=== PATIENT | female | born 1950 | race Caucasian/White ===

== ENCOUNTER → 2019-08-16 | Outpatient (CLI) | payer MEDICARE ==
--- NOTE | 2019-08-16 15:50 | US ---
EXAMINATION TYPE: US thyroid st tissue head/neck DATE OF EXAM: 08/16/2019 COMPARISON: NONE CLINICAL HISTORY: 68-year-old female E04.2 nontoxic multinodular goiter. Follow up thyroid nodule, hi story of FNA TECHNIQUE: Multiple sonographic images of the thyroid gland are obtained. FINDINGS: GLAND SIZE: Right Lobe: 3.9 x 1.4 x 1.4 cm Overall Parenchyma: heterogenous Left Lobe: 4.9 x 1.9 x 2.5 cm Overall Parenchyma: heterogeneous Isthmus Thickness: 0.5 cm NODULES RIGHT: # of nodules measured on right: 0 LEFT: # of nodules measured on left: 1 1. 2.1 X 1.6 x 2.3 cm hypoechoic mixed solid cystic nodule at the lower pole with poorly defined ma rgins. This nodule is wider than tall and shows intranodular vascularity. Prior size: no previous ISTHMUS: # of nodules measured in the isthmus: 0 Bilateral neck scanned, no evidence of lymphadenopathy. IMPRESSION: A 2.3 cm mixed solid cystic nodule at the left lower pole. FNA can be considered if not previously pe rformed.
== END | disposition home or self-care (01) ==
LOC: RADUSWWP 12:17
PROVIDERS: ATTEND Internal Medicine Endocrinology, Diabetes & Metabolism
DX: E04.1 Nontoxic single thyroid nodule (principal)
CPT/HCPCS: 76536

== ENCOUNTER → 2020-09-10 | Outpatient (CLI) | payer MEDICARE ==
[2020-09-11 02:58] LABS: T4, Free (Free Thyroxine) 1.5 ng/dL (0.80-1.80)
== END | disposition home or self-care (01) ==
LOC: LABWHC1 11:01
PROVIDERS: ATTEND Internal Medicine Endocrinology, Diabetes & Metabolism
DX: E04.2 Nontoxic multinodular goiter (principal)
CPT/HCPCS: 36415; 84439; 84443

== ENCOUNTER → 2020-11-28 | Outpatient (CLI) | payer MEDICARE ==
--- NOTE | 2020-11-28 16:07 | US ---
EXAMINATION TYPE: US kidneys/renal and bladder DATE OF EXAM: 11/28/2020 COMPARISON: NONE CLINICAL HISTORY: N28.9 CKD Stage 3. EXAM MEASUREMENTS: Right Kidney: 9.5 x 5.2 x 5.1 cm Left Kidney: 9.0 x 4.4 x 4.2 cm Right Kidney: No hydronephrosis or shadowing renal calculi.. Cyst lower pole measuring 3.4 x 2.4 x 3. 7 cm Left Kidney: Two cystic areas visualized, largest measuring 2.7 x 2.1 x 2.4 cm no hydronephrosis or shadowing renal calculi. Bladder: wnl Bilateral Jets seen: No ureteral jets not visualized No hydronephrosis or shadowing renal calculi. IMPRESSION: 1. No hydronephrosis or shadowing renal calculi. 2. Bilateral renal cysts, as described above. The largest at the right lower pole measures 3.4 x 3.7 x 2.4 cm. 3. The ureteral jets are not visualized.
== END | disposition home or self-care (01) ==
LOC: RADUSWWP 13:07
PROVIDERS: ATTEND Family Medicine
DX: N18.30 Chronic kidney disease, stage 3 unspecified (principal); N28.1 Cyst of kidney, acquired
CPT/HCPCS: 76770

== ENCOUNTER → 2020-12-05 | Outpatient (CLI) | payer MEDICARE ==
--- NOTE | 2020-12-05 10:12 | US ---
EXAMINATION TYPE: US abdomen limited DATE OF EXAM: 12/05/2020 COMPARISON: NONE CLINICAL HISTORY: 70-year-old female I72.1 Splenic artery aneurysm. TECHNIQUE: Multiple sonographic images of the left upper quadrant are obtained. FINDINGS: EXAM MEASUREMENTS: Spleen: 9.6 cm 1. Spleen: splenic artery mostly obscured by overlying bowel gas, small portions of artery seen at splenic hilum and celiac trunk appear wnl IMPRESSION: Normal size spleen. Only a small portion of the splenic artery at the hilum of the spleen and at the celiac axis origin is visualized. Unable to visualize the patient's splenic artery aneurysm by ultras ound. Contrast enhanced CT can better evaluate.
== END | disposition home or self-care (01) ==
LOC: RADUSWWP 07:35
PROVIDERS: ATTEND Family Medicine
DX: I72.8 Aneurysm of other specified arteries (principal)
CPT/HCPCS: 76705

== ENCOUNTER → 2021-04-03 | Outpatient (CLI) | payer MEDICARE ==
--- NOTE | 2021-04-03 09:09 | US ---
EXAMINATION TYPE: US abdomen complete DATE OF EXAM: 04/03/2021 COMPARISON: US CLINICAL HISTORY: R93.89 abnormal findings. Abnormal US finding. EXAM MEASUREMENTS: Liver Length: 12.3 cm Gallbladder Wall: 0.14 cm CBD: 0.41 cm Spleen: 9.9 cm Right Kidney: 9.6 x 4.5 x 4.4 cm Left Kidney: 10.3 x 5.1 x 5.3 cm Limited due to gas and patient body habitus. Pancreas: Appears hyperechoic and heterogeneous. Tail obscured. Liver: Increased echogenicity. Appears coarse in echotexture. Hypoechoic area seen adjacent to the gallbladder: 1.0 x 1.4 x 1.7 cm. Gallbladder: Hyperechoic focus seen within: 0.4 x 0.6 x 0.7 cm. Evidence for sonographic Forbes's sign: No CBD: Portions seen appear wnl. Spleen: Appears wnl Right Kidney: Anechoic areas seen, largest seen lower pole measures: 4.2 x 3.7 x 3.3 cm. Collecting s ystem appears slightly dilated. Left Kidney: Anechoic area seen lower pole: 2.5 x 2.8 x 2.3 cm. Hyperechoic focus seen: 0.3 x 0.4 x 0 .2 cm. Upper IVC: Appears wnl Abd Aorta: Appears wnl. Iliacs obscured by gas. IMPRESSION: 1. Cholelithiasis 2. Correlate with pancreatic enzymes of the pancreas appear somewhat heterogeneous but is limited in assessment. . 3. Heterogeneous pattern to the liver is nonspecific correlate for hepatocellular disease. CAT scan i s recommended for further evaluation. 4. Bilateral renal cysts with nonobstructing left renal calculus.
== END | disposition home or self-care (01) ==
LOC: RADUSWWP 06:55
PROVIDERS: ATTEND Family Medicine
DX: K80.20 Calculus of gallbladder without cholecystitis without obstruction (principal); N20.0 Calculus of kidney; N28.1 Cyst of kidney, acquired
CPT/HCPCS: 76700

== ENCOUNTER → 2021-05-05 | Outpatient (CLI) | payer MEDICARE ==
--- NOTE | 2021-05-06 09:05 | CT ---
EXAMINATION TYPE: CT abdomen wo con DATE OF EXAM: 05/05/2021 COMPARISON: No relevant previous studies are submitted HISTORY: Splenic artery aneurysm CT DLP: 361.70 mGycm Automated exposure control for dose reduction was used. TECHNIQUE: Helical acquisition of images was performed from the lung bases through the abdomen. No i ntravenous contrast. CONTRAST: Performed without Oral Contrast and without IV contrast. FINDINGS: Lack of contrast could compromise sensitivity. LUNG BASES: No significant abnormality is appreciated. LIVER/GB: Liver shows no mass. Gallbladder is thought to be contracted, some high attenuation present suggesting stones. PANCREAS: No significant abnormality is seen. SPLEEN: Calcified oval focus towards the splenic hilum on the left is noted and measures approximatel y 2.2 cm in greatest dimension. There is an additional calcification associated with splenic artery s omewhat more centrally also along shape measuring approximately 2 cm in greatest dimension. ADRENALS: No discrete abnormality KIDNEYS: Large exophytic cyst at the lower pole anteriorly measures 4 cm, no hydronephrosis bilateral ly. At the lower pole of the left kidney there is a cystic focus measuring 2.5 cm BOWEL: Colonic interposition noted anterior to the liver. There may be a small duodenal diverticulum at the level of the head of the pancreas. Diverticular change noted incidentally within the colon. LYMPH NODES: No significan abnormality is appreciated. OSSEOUS STRUCTURES: Minimal anterolisthesis grade 1 L4-5 and L3-4, there is loss of disc height at i ntervertebral levels L3-4 and L4-5 consistent with degenerative disc disease. Focal lucency present a t the L2-3 level towards the right neural foramen, lateral recess may be indicative of vacuum phenome non, disc disease, multilevel disc bulge noted, there is associated facet arthropathy. Sclerotic focu s in the right sacrum is indeterminate, consider bone scan as indicated, findings could be related to bone island. FREE AIR: No Free Air visible ASCITES: None visible. RETROPERITONEAL ADENOPATHY: No Retroperitoneal Adenopathy visible. OTHER: Uterus and adnexal structures not seen. IMPRESSION: SPLENIC ARTERY ANEURYSMS. ADDITIONAL FINDINGS ABOVE.
== END | disposition home or self-care (01) ==
LOC: RADCTMAIN 17:08
PROVIDERS: ATTEND Family Medicine
DX: I72.8 Aneurysm of other specified arteries (principal)
CPT/HCPCS: 74150

== ENCOUNTER → 2021-09-17 | Outpatient (CLI) | payer MEDICARE ==
--- NOTE | 2021-09-17 16:11 | US ---
EXAMINATION TYPE: US thyroid st tissue head/neck DATE OF EXAM: 09/17/2021 COMPARISON: NONE CLINICAL HISTORY: E04.2 NONTOXIC MULTINODULAR GOITER. GLAND SIZE: Right Lobe: 4.8 x 1.4 x 2.0 cm Overall Parenchyma: heterogenous Left Lobe: 5.0 x 1.3 x 2.4 cm Overall Parenchyma: heterogeneous Isthmus Thickness: 0.6 cm NODULES RIGHT: # of nodules measured on right: 1 1. 0.4 X 0.3 x 0.3 cm, upper medial, mixed cystic and solid, hypoechoic nodule, which is taller [place] n wide, with lobulated or irregular margins, without echogenic foci. LEFT: # of nodules measured on left: 1 1. 2.2 X 2.6 x 1.7 cm, lower mid, mixed cystic and solid, hypoechoic nodule, which is wider than ta ll, with lobulated or irregular margins, without echogenic foci. TR 4 Prior size: 2.1 x 1.6 x 2.3 cm ISTHMUS: # of nodules measured in the isthmus: 0 Bilateral neck scanned, Right neck lymph node measuring 0.9 x 0.5 x 0.5cm. Left neck lymph node measu ring 1.2 x 0.7 x 0.6cm. IMPRESSION: Moderately suspicious nodule left lobe thyroid. Fine-needle aspiration recommended. 2017 ACR TI-RADS LEVEL: TR-RADS 4 - Moderately Suspicious: Follow if > 1 cm, FNA if > 1.5 cm *Highest TI-RADS level nodule reported
[2021-09-17 19:07] LABS: T4, Free (Free Thyroxine) 1.5 ng/dL (0.800-1.800)
== END | disposition home or self-care (01) ==
LOC: RADUSWWP 12:29
PROVIDERS: ATTEND Internal Medicine Endocrinology, Diabetes & Metabolism
DX: E04.2 Nontoxic multinodular goiter (principal)
CPT/HCPCS: 76536; 84439; 84443

== ENCOUNTER 2022-06-01 06:43 | Day surgery (SDC) | payer MEDICARE ==
[~2022-06-01 06:43] MED LIST: LACTATED RINGERS 1,000 ML IV SCH; LIDOCAINE 1% (10MG/ML) FOR IV START INTRADERMA PRN
[2022-06-01 06:59] VITALS: TEMP 97.2
[2022-06-01] MEDS ORDERED: LACTATED RINGERS 1,000 ML IV ONE (07:00)
[2022-06-01 07:08] LABS: Glucose,Whole Blood 98 mg/dL (70-110)
[2022-06-01] MEDS ORDERED: PROPOFOL 10 MG/ML 20 ML VIAL IV ONE (07:36)
--- NOTE | 2022-06-01 08:10 | P.PCN ---
Date of Procedure: 06/01/22 Procedure(s) Performed: BRIEF HISTORY: Patient is a 71-year-old pleasant female scheduled for an elective colonoscopy as a part of evaluation of skin for colon cancer and prior history of colon polyps. PROCEDURE PERFORMED: Colonoscopy. PREOPERATIVE DIAGNOSIS: Screening for Colon cancer history of colon polyps. IV sedation per Anesthesia. PROCEDURE: After informed consent was obtained, the patient, was brought into the endoscopy unit. IV sedation was administered by Anesthesia under continuous monitoring. Digital rectal examination was normal. Initially the Olympus CF-160 flexible video pediatric colonoscope was then inserted in the rectum, gradually advanced into the cecum with severe difficulty. Careful examination was performed as the scope was gradually being withdrawn. Ileocecal valve and the appendiceal orifice were visualized and appeared normal. Prep was excellent. Mucosa of the cecum, ascending colon, transverse colon, descending colon, sigmoid colon, and rectum appeared normal. Retroflexion was performed in the rectum and no lesions were seen. The patient tolerated the procedure well. IMPRESSION: N ormal-appearing colon from rectum to cecum with no evidence of colorectal neoplasia. Scattered sigmoid diverticula RECOMMENDATIONS: Findings of this examination were discussed with the patient as well as a family. She was advised to have a repeat colonoscopy in 10 years..
[2022-06-01 08:24] VITALS: RESP 16
[2022-06-01 08:42] VITALS: BP 131/80; PULSE 77
== END 2022-06-01 08:58 | disposition home or self-care (01) ==
LOC: ORWHC2ENDO 06:43
PROVIDERS: ATTEND Internal Medicine Gastroenterology
DX: Z12.11 Encounter for screening for malignant neoplasm of colon (principal); K57.30 Diverticulosis of large intestine without perforation or abscess without bleeding; Z86.010 Personal history of colon polyps; I10 Essential (primary) hypertension; E78.5 Hyperlipidemia, unspecified; Z88.1 Allergy status to other antibiotic agents; Z91.040 Latex allergy status; Z88.2 Allergy status to sulfonamides; E11.9 Type 2 diabetes mellitus without complications; Z79.84 Long term (current) use of oral hypoglycemic drugs; M19.90 Unspecified osteoarthritis, unspecified site; Z79.01 Long term (current) use of anticoagulants; Z79.82 Long term (current) use of aspirin; Z79.899 Other long term (current) drug therapy
CPT/HCPCS: 45378; J2704

== ENCOUNTER → 2022-09-08 | Outpatient (CLI) | payer MEDICARE ==
--- NOTE | 2022-09-08 11:27 | US ---
EXAMINATION TYPE: US thyroid st tissue head/neck DATE OF EXAM: 09/08/2022 COMPARISON: 09/17/2021, 08/16/2021 CLINICAL HISTORY: 71-year-old female E04.2 NONTOXIC MULTINODULAR GOITER. GLAND SIZE: Right Lobe: 4.3 x 1.6 x 1.0 cm Overall Parenchyma: homogenous Left Lobe: 3.5 x 1.3 x 1.0 cm Overall Parenchyma: homogeneous Isthmus Thickness: 0.56 cm NODULES RIGHT: # of nodules measured on right: Scattered subcentimeter cysts, too small to measure LEFT: # of nodules measured on left: 1 1. 2.3 X 1.7 x 2.0 cm, lower medial, solid or almost completely solid, heterogeneous hypoechoic TR 4 nodule, which is wider than tall, with smooth margins, without echogenic foci. Prior size: 2.2 x 1.7 x 2.6 cm ISTHMUS: # of nodules measured in the isthmus: 0 Bilateral neck scanned, hypoechoic lymph nodes measured: 1. Right 0.7 x 0.5 x 0.6cm 2. Left 1.0 x 0.4 x 0.5cm These are mildly thickened but not enlarged. IMPRESSION: Solitary solid TR4 nodule left lower lobe relatively stable at 2.2 x 2.0 cm (versus 2.6 x 2.2 cm, pre viously). A couple, mildly thickened but nonenlarged lymph nodes on either side of the neck, probably reactive/ post inflammatory. These can be followed.
[2022-09-08 16:41] LABS: T4, Free (Free Thyroxine) 1.49 ng/dL (0.800-1.800)
== END | disposition home or self-care (01) ==
LOC: RADUSWWP 10:09
PROVIDERS: ATTEND Internal Medicine Endocrinology, Diabetes & Metabolism
DX: E04.2 Nontoxic multinodular goiter (principal)
CPT/HCPCS: 76536; 84439; 84443

== ENCOUNTER → 2023-10-18 | Outpatient (CLI) | payer MEDICARE ==
[2023-10-18 16:21] LABS: T4, Free (Free Thyroxine) 1.54 ng/dL (0.80-1.80)
--- NOTE | 2023-10-18 18:51 | US ---
EXAMINATION TYPE: US thyroid st tissue head/neck DATE OF EXAM: 10/18/2023 COMPARISON: US 09/08/2022 CLINICAL INDICATION: Female, 73 years old with history of E04.2 NONTOXIC MULTINODULAR GOITER; GLAND SIZE: Right Lobe: 3.8 x 1.5 x 1.3 cm Overall Parenchyma: heterogeneous Left Lobe: 4.3 x 1.5 x 1.3 cm Overall Parenchyma: heterogeneous Isthmus Thickness: 0.5 cm NODULES RIGHT: # of nodules measured on right: 0 LEFT: # of nodules measured on left: 1 1. 2.2 X 1.6 x 2.0 cm, lower mid, solid or almost completely solid, hypoechoic nodule, which is wid er than tall, with smooth margins, without echogenic foci. Prior size: 2.3 x 1.7 x 2.0 cm ISTHMUS: # of nodules measured in the isthmus: 0 Bilateral neck scanned, no evidence of lymphadenopathy. IMPRESSION: 1. No thyromegaly. 2. No right lobe thyroid nodules 3. Stable 2.2 x 1.6 x 2.0 left lobe thyroid nodule. TR 4 nodule. Consider fine-needle aspiration if n ot already performed. In lieu of fine-needle aspiration, yearly follow-up is recommended. 2017 ACR TI-RADS LEVEL: TR 4 *Highest TI-RADS level nodule reported
== END | disposition home or self-care (01) ==
LOC: RADUSWWP 09:21
PROVIDERS: ATTEND Internal Medicine Endocrinology, Diabetes & Metabolism
DX: E04.1 Nontoxic single thyroid nodule (principal)
CPT/HCPCS: 76536; 84439; 84443

== ENCOUNTER → 2024-10-29 | Outpatient (CLI) | payer MEDICARE ==
--- NOTE | 2024-10-29 11:35 | US ---
EXAMINATION TYPE: US thyroid st tissue head/neck DATE OF EXAM: 10/29/2024 COMPARISON: Multiple thyroid ultrasounds with most recent (10/18/2023) CLINICAL INDICATION: Female, 74 years old with history of E04.2 NONTOXIC MULTINODULAR GOITER; f/u kno wn left nodule TECHNIQUE: Grayscale and color Doppler imaging of the thyroid gland. FINDINGS: GLAND SIZE: Right Lobe: 3.6x1.1x1.0 cm Overall Parenchyma: heterogeneous Left Lobe: 4.1x1.1x1.5 cm Overall Parenchyma: heterogeneous Isthmus Thickness: 0.5 cm NODULES RIGHT: # of nodules measured on right: 0 LEFT: # of nodules measured on left: 1 1. 1.8 X 1.2 x 1.5 cm, lower mid, solid or almost completely solid, hypoechoic nodule, which is wid er than tall, with smooth margins, without echogenic foci. TR 4. Prior size: 2.3 x 1.7 x 2.0 cm ISTHMUS: # of nodules measured in the isthmus: 0 Bilateral neck scanned, no evidence of lymphadenopathy. IMPRESSION: Decreased size of TR 4-1.8 cm left thyroid lobe nodule. Previously measured up to 2.3 cm. No new or e nlarging thyroid nodules. Highest TI-RADS level nodule reported: ACR TI-RADS LEVEL: TI-RADS 4 - Moderately Suspicious: Follow if > 1 cm, FNA if > 1.5 cm [facility], , 10/29/2024 11:33 AM
== END | disposition home or self-care (01) ==
LOC: RADUSWWP 10:25
PROVIDERS: ATTEND Internal Medicine Endocrinology, Diabetes & Metabolism
DX: E04.1 Nontoxic single thyroid nodule (principal)
CPT/HCPCS: 76536